=== PATIENT | female | born 1970 | race Caucasian/White ===

== ENCOUNTER 2018-11-07 05:46 | Emergency (ER) | payer SELFPAY, MEDICAID ==
[2018-11-07] MEDS: BELLADONNA/PHENOBARBITAL TAB PO (06:37)
[2018-11-07] MEDS: FAMOTIDINE 20 MG TAB PO (06:37)
[2018-11-07] MEDS: LIDOCAINE/MYLANTA 40 ML BTL PO (06:37)
== END 2018-11-07 06:48 | disposition home or self-care (01) ==
LOC: E/R 05:46
DX: R10.13 Epigastric pain (principal)
CPT/HCPCS: 99283